=== PATIENT | male | born 1950 | race Caucasian/White ===

== ENCOUNTER → 2017-12-07 | Outpatient (CLI) | payer MEDICARE, OTHER ==
[~2017-12-07] MED LIST: CLO1; CLON1; HCTZ; LISINIPRIL; SIMV5TAB56
== END ==
LOC: RESP 03:31
PROVIDERS: ATTEND Internal Medicine Cardiovascular Disease
DX: I35.0 Nonrheumatic aortic (valve) stenosis (principal); I34.0 Nonrheumatic mitral (valve) insufficiency; I07.1 Rheumatic tricuspid insufficiency; I35.2 Nonrheumatic aortic (valve) stenosis with insufficiency
CPT/HCPCS: 93017; 93325; 93350